=== PATIENT | female | born 1955 | race African-American/Black ===

== ENCOUNTER 2025-03-13 08:03 | Emergency (ER) | payer OTHER, MEDICARE ==
[~2025-03-13] VITALS: Ht 170.2 cm; Wt 70.0 kg
[2025-03-13 08:06] VITALS: O2SAT 100
[2025-03-13] MEDS: SODIUM CHLORIDE 0.9% 1,000 ML IV ONE (08:41)
[2025-03-13 08:42] LABS: BASOPHILS % 0.2 % (0.0-2.0); EOSINOPHILS % 2.0 % (0.0-5.0); HEMATOCRIT. 39.9 % (36.0-48.0); HEMOGLOBIN. 13.0 g/dL (12.0-16.0); LYMPHOCYTES % 32.3 % (20.0-50.0); MEAN PLATELET VOLUME 9.1 fl (7.4-10.4); MONOCYTES % 11.4 % (2.0-8.0); NEUTROPHILS % 54.1 % (40.0-76.0); PLATELET 177 x1000/uL (130-400); RED BLOOD CELL COUNT 4.58 mill/uL (4.2-5.4); RED CELL DISTRIBUTION WIDTH 14.5 % (11.6-14.6)
[2025-03-13 09:06] LABS: CREATININE 1.1 mg/dL (0.6-1.0); PROTEIN TOTAL 6.7 g/dL (6.0-8.3); UREA NITROGEN BLOOD 14 mg/dL (9-23)
[2025-03-13 09:07] LABS: ASPARTATE AMINOTRANSFERASE 18 IU/L (<34); TROPONIN I HIGH SENSITIVITY < 4 ng/L (3.0-34)
[2025-03-13 09:08] LABS: BILIRUBIN DIRECT 0.3 mg/dL (<=3.0); BILIRUBIN TOTAL 1.2 mg/dL (0.1-1.0)
[2025-03-13 11:00] LABS: TROPONIN I HIGH SENSITIVITY < 4 ng/L (3.0-34)
[2025-03-13 11:08] VITALS: BP 124/70; PULSE 65; RESP 18; TEMP 36.9; O2SAT 100
== END 2025-03-13 11:47 | disposition home or self-care (01) ==
LOC: ER 08:03 → CANBEDREQ 11:06 → ER 11:47
DX: R55 Syncope and collapse (principal); R06.02 Shortness of breath
CPT/HCPCS: 99285; 96360; 71045; 80076; 80048; 83880; 83735; 85025; 84484; 36415; 93005; J7030